=== PATIENT | male | born 2000 | race Caucasian/White ===

== ENCOUNTER 2021-02-24 18:03 | Emergency (ER) | payer BC ==
[2021-02-24 19:40] LABS: HEMOGLOBIN 14.7 gm/dl (14.0-17.5); RED BLOOD COUNT 4.67 M/UL (4.20-5.50); WHITE BLOOD COUNT 6.3 K/UL (4.5-11.0)
[2021-02-24 19:55] LABS: BUN/CREATININE RATIO 12 (0-10)
== END 2021-02-24 21:15 | disposition home or self-care (01) ==
LOC: ER1 18:03
PROVIDERS: Physician Assistant
DX: R07.2 Precordial pain (principal)
CPT/HCPCS: 71045; 80053; 82550; 82553; 83874; 84484; 85025; 85379; 85610; 85730; 93005; 99285

== ENCOUNTER → 2021-04-02 | Outpatient (CLI) | payer BC | LOC: HEART 5 10:56 | DX: R07.9 Chest pain, unspecified (principal); Q67.6 Pectus excavatum | CPT/HCPCS: 93306 ==